=== PATIENT | female | born 1940 | race Caucasian/White ===

== ENCOUNTER → 2016-09-07 | Outpatient (CLI) | payer OTHER, BC ==
[~2016-09-07] MED LIST: ADULT LOW DOSE81 MG PO; ASPIRIN325 PO; CALCIUM 600 +1 EAC1 PO; EVISTA PO; LISINOPRIL10 MG PO; LISINOPRIL2.5 MG; OMEPRAZOLE 20 M20 MG PO; PLAVIX 75 MG TA75 M1 PO; PLAVIX 75 MG TA75 MG PO; PRILOSEC 20 MG20 MG PO; SIMVASTATIN20 MG PO; SIMVASTATIN80 MG PO; TOPROL XL25 MG PO; TOPROL XL50 MG PO; VITAMIN D22000 UNIT PO; ZETIA10 MG PO; ZOCOR 20 MG TAB20 M1 PO
== END ==
LOC: NUC 09-06 13:14
DX: I25.10 Atherosclerotic heart disease of native coronary artery without angina pectoris (principal)

== ENCOUNTER → 2017-05-18 | Outpatient (CLI) | payer OTHER, BC | LOC: RAD 00:32 | DX: Z12.31 Encounter for screening mammogram for malignant neoplasm of breast (principal) ==

== ENCOUNTER → 2017-09-06 | Outpatient (CLI) | payer OTHER, BC ==
--- NOTE | ~2017-09-06 | 2DMMODE ---
[facility] [address] [place] [address] 2 D/M-MODE ECHOCARDIOGRAM Name: MIKE OLSEN Room #: REG [facility]#: [id number] Admission: 09/06/17 Attend Phys: Nick Kinney MD Discharge: Date of : 36 Date of Service: 09/06/17 1050 Report #: [id number] THIS REPORT FOR: //name// APPROVED REPORT Study performed: 09/06/2017 10:11:25 EXAM: Comprehensive 2D, Doppler, and color-flow Echocardiogram Patient Location: Out-Patient Room #: Echo lab Status: routine BSA: 1.63 HR: 66 bpm BP: 128/74 mmHg Other Information Study Quality: Adequate Indications CAD Hypertension/HDD 2D Dimensions RVDd: 31.35 mm LVEF(%): 61.82 (>50%) IVSd: 8.06 (7-11mm) LVOT Diam: 18.46 (18-24mm) LVDd: 44.59 mm PWd: 8.46 (7-11mm) Ascending Ao: 25.99 (22-36mm) LVDs: 29.84 (25-40mm) Aortic Root: 28.67 mm IVC: 14.00 mm Stoll's LVEF: 61.82 % Volumes Left Atrial Volume (Systole) Single Plane 4CH: 29.48 mL Single Plane 2CH: 25.32 mL LA ESV Index: 19.00 mL/m2 Aortic Valve AoV Peak Cb.: 1.37 m/s AO Peak Gr.: 7.56 mmHg LVOT Max P.84 mmHg LVOT Max V: 0.98 m/s KAREN Vmax: 1.91 cm2 Mitral Valve E/A Ratio: 1.3 MV Decel. Time: 193.[address] [facility] [place] [address] 2 D/M-MODE ECHOCARDIOGRAM Name: MIKE OLSEN Room #: REG [facility]#: [id number] Admission: 09/06/17 Attend Phys: Nick Kinney MD Discharge: Date of : 36 Date of Service: 09/06/17 1050 Report #: [id number] MV E Max Cb.: 0.94 m/s MV A Cb.: 0.75 m/s MV PHT: 56.25 ms IVRT: 83.04 ms Pulmonary Valve PV Peak Cb.: 0.82 m/s PV Peak Gr.: 2.70 mmHg Pulmonary Vein P Vein S: 0.66 m/s P Vein A: 0.26 m/s P Vein D: 0.47 m/s P Vein A Dur.: 87.7 msec P Vein S/D Ratio: 1.40 Tricuspid Valve TR Peak Cb.: 2.50 m/s TR Peak Gr.: 25.10 mmHg PA Pressure: 30.00 mmHg Left Ventricle The left ventricle is normal size. There is normal left ventricular wall thickness. The left ventricular systolic function is normal. The left ventricular ejection fraction is within the normal range. LVEF is 55-60%. Grade II - pseudonormal filling dynamics. Right Ventricle The right ventricle is normal size. The right ventricular systolic function is normal. Atria The left atrium size is normal. The right atrium size is normal. Aortic Valve The aortic valve is normal in structure. Aortic valve is calcified. No aortic regurgitation is present. There is no aortic valvular stenosis. Mitral Valve The mitral valve is normal in structure. Mild mitral regurgitation. No evidence of mitral valve stenosis. Tricuspid Valve The tricuspid valve is normal in structure. There is trace tricuspid regurgitation. Estimated PAP 30 mmHg. There is no pulmonary hypertension. [address] [address] 2 D/M-MODE ECHOCARDIOGRAM Name: MIKE OLSEN Miguel Room #: REG CL [facility]#: [id number] Admission: 09/06/17 Attend Phys: Nick Kinney MD Discharge: Date of : 36 Date of Service: 09/06/17 1050 Report #: [id number] Pulmonic Valve The pulmonary valve is normal in structure. There is no pulmonic valvular regurgitation. Great Vessels The aortic root is normal in size. IVC is normal in size and collapses >50% with inspiration. Pericardium There is no pericardial effusion. <Conclusion> The left ventricle is normal size. There is normal left ventricular wall thickness. The left ventricular systolic function is normal. The right ventricle is normal size. The left atrium size is normal. Aortic valve is calcified. There is no aortic valvular stenosis. Mild mitral regurgitation. <ELECTRONICALLY SIGNED> By: Nick Kinney MD 09/06/17 1050 [id number] Nick Kinney MD /INF
== END ==
LOC: CV 09:55
DX: I25.10 Atherosclerotic heart disease of native coronary artery without angina pectoris (principal); I10 Essential (primary) hypertension; I34.0 Nonrheumatic mitral (valve) insufficiency

== ENCOUNTER → 2018-07-16 | Outpatient (CLI) | payer OTHER, BC | LOC: RAD 01:12 | DX: Z12.31 Encounter for screening mammogram for malignant neoplasm of breast (principal) ==

== ENCOUNTER 2018-08-15 10:24 | Emergency (ER) | payer OTHER, BC ==
[~2018-08-15] VITALS: Ht 154.9 cm; Wt 59.0 kg
[2018-08-15 11:15] LABS: ABSOLUTE NEUTROPHILS 10.4 thou/uL (1.4-8.2); BASOPHILS 0.6 % (0.0-2.0); EOSINOPHILS 0.6 % (0.0-3.0); HEMATOCRIT 42.9 % (37.0-47.0); HEMOGLOBIN 14.3 gm/dL (12.0-15.0); LYMPHOCYTES 23.3 % (24.0-44.0); MCH 27.3 pg (26.0-34.0); MCHC 33.3 g/dL (28.0-37.0); MCV 81.9 fL (80.0-100.0); MONOCYTES 5.4 % (1.0-8.0); PLATELET COUNT 189 thou/uL (150-400); POLYS 70.1 % (36.0-66.0); RBC 5.24 mil/uL (4.20-5.00); RDW 14.8 % (10.5-14.5); WBC 14.8 thou/uL (4.0-11.0)
[2018-08-15 11:23] LABS: CALCIUM 9.6 mg/dL (8.5-10.1); CREATININE 0.8 mg/dL (0.6-1.0)
[2018-08-15 11:29] LABS: ALBUMIN 3.6 g/dL (3.4-5.0); TOTAL BILIRUBIN 0.3 mg/dL (<0.1-1.0); TOTAL PROTEIN 7.2 g/dL (6.4-8.2)
[2018-08-15] MEDS ORDERED: VITAMIN D1000 UNI1 PO (11:47)
[2018-08-15] MEDS ORDERED: [UNRECOGNIZED DRUG - OTHER] TOP (11:49)
[2018-08-15] MEDS ORDERED: VITAMIN B-12500 MCG PO (11:50)
[2018-08-15] MEDS ORDERED: CRESTOR5 MG PO (11:50)
[2018-08-15 12:14] LABS: URINE BILIRUBIN NEGATIVE (Negative); URINE BLOOD 3+ (Negative); URINE CLARITY CLEAR; URINE COLOR YELLOW; URINE GLUCOSE-RANDOM* NEGATIVE (Negative); URINE KETONES NEGATIVE (Negative); URINE LEUKOCYTES-REFLEX NEGATIVE (Negative); URINE NITRITE-REFLEX NEGATIVE (Negative); URINE PROTEIN (DIPSTICK) NEGATIVE (Negative); URINE UROBILINOGEN 0.2 E.U./dl (0.2-1.0)
[2018-08-15 12:23] LABS: SQUAMOUS 0-3 Few /LPF (0-3); URINE RBC >20 Many /HPF (0-2)
[2018-08-15 12:24] LABS: BACTERIA-REFLEX 1-9 Few /HPF (None Seen); CASTS None Seen /LPF (None Seen); CRYSTALS None Seen /LPF (None Seen); URINE WBC-REFLEX 0-5 Rare /HPF (0-5)
[2018-08-15 13:44] LABS: HEMATOCRIT 31.7 % (37.0-47.0); MCH 27.6 pg (26.0-34.0); MCHC 33.4 g/dL (28.0-37.0); MCV 82.8 fL (80.0-100.0); RBC 3.83 mil/uL (4.20-5.00); RDW 14.4 % (10.5-14.5)
[2018-08-15 13:45] LABS: HEMOGLOBIN 10.6 gm/dL (12.0-15.0)
[2018-08-15] MEDS ORDERED: ONDANSETRON HCL4 M2 PO (14:06)
[2018-08-15] MEDS ORDERED: ULTRAM 50MG TAB50 MG PO (14:06)
[2018-08-15 14:22] VITALS: BP 142/73
== END 2018-08-15 14:22 | disposition home or self-care (01) ==
LOC: ER 10:24
PROVIDERS: Physician Assistant
DX: R10.31 Right lower quadrant pain (principal); M62.830 Muscle spasm of back; R11.10 Vomiting, unspecified; K21.9 Gastro-esophageal reflux disease without esophagitis; Z90.710 Acquired absence of both cervix and uterus; Z88.1 Allergy status to other antibiotic agents; Z88.5 Allergy status to narcotic agent; Z88.6 Allergy status to analgesic agent; Z88.8 Allergy status to other drugs, medicaments and biological substances

== ENCOUNTER → 2018-09-05 | Outpatient (CLI) | payer OTHER, BC ==
[~2018-09-05] MED LIST changes: +CRESTOR5 MG PO; +ONDANSETRON HCL4 M2 PO; +ULTRAM 50MG TAB50 MG PO; +VITAMIN B-12500 MCG PO; +VITAMIN D1000 UNI1 PO; +[UNRECOGNIZED DRUG - OTHER] TOP
== END ==
LOC: NUC 07:18
DX: I25.812 Atherosclerosis of bypass graft of coronary artery of transplanted heart without angina pectoris (principal); I10 Essential (primary) hypertension; E78.5 Hyperlipidemia, unspecified; Z87.891 Personal history of nicotine dependence

== ENCOUNTER → 2019-07-25 | Outpatient (CLI) | payer OTHER, BC | LOC: RAD 13:52 | DX: Z12.31 Encounter for screening mammogram for malignant neoplasm of breast (principal) ==

== ENCOUNTER → 2019-10-02 | Outpatient (CLI) | payer OTHER, BC | LOC: SJCVCIMAG 10:45 | DX: R94.31 Abnormal electrocardiogram [ECG] [EKG] (principal); I08.1 Rheumatic disorders of both mitral and tricuspid valves; I25.812 Atherosclerosis of bypass graft of coronary artery of transplanted heart without angina pectoris; I10 Essential (primary) hypertension; E78.00 Pure hypercholesterolemia, unspecified; R60.1 Generalized edema; E78.5 Hyperlipidemia, unspecified; Z98.61 Coronary angioplasty status ==

== ENCOUNTER → 2020-04-06 | Outpatient (CLI) | payer OTHER, BC | LOC: SJCVC 12:52 | PROVIDERS: ATTEND Internal Medicine Cardiovascular Disease | DX: I25.812 Atherosclerosis of bypass graft of coronary artery of transplanted heart without angina pectoris (principal); I10 Essential (primary) hypertension; I25.10 Atherosclerotic heart disease of native coronary artery without angina pectoris; R60.9 Edema, unspecified ==

== ENCOUNTER → 2020-10-14 | Outpatient (CLI) | payer OTHER, BC | LOC: SJCVCIMAG 10-06 07:28 | PROVIDERS: ATTEND Internal Medicine Cardiovascular Disease | DX: R00.0 Tachycardia, unspecified (principal); I49.1 Atrial premature depolarization; I49.3 Ventricular premature depolarization; I25.812 Atherosclerosis of bypass graft of coronary artery of transplanted heart without angina pectoris; I10 Essential (primary) hypertension; E78.00 Pure hypercholesterolemia, unspecified; R60.9 Edema, unspecified; E78.5 Hyperlipidemia, unspecified; Z90.710 Acquired absence of both cervix and uterus; Z98.890 Other specified postprocedural states; Z95.5 Presence of coronary angioplasty implant and graft; Z88.8 Allergy status to other drugs, medicaments and biological substances; Z79.82 Long term (current) use of aspirin; Z79.899 Other long term (current) drug therapy; Z87.891 Personal history of nicotine dependence; Z82.49 Family history of ischemic heart disease and other diseases of the circulatory system ==

== ENCOUNTER → 2021-04-18 | Outpatient (CLI) | payer OTHER, BC | LOC: SJCVC 10:09 | PROVIDERS: ATTEND Internal Medicine Cardiovascular Disease | DX: I10 Essential (primary) hypertension (principal); I25.10 Atherosclerotic heart disease of native coronary artery without angina pectoris; E78.00 Pure hypercholesterolemia, unspecified; R60.9 Edema, unspecified; Z88.8 Allergy status to other drugs, medicaments and biological substances; Z88.1 Allergy status to other antibiotic agents; Z79.82 Long term (current) use of aspirin; Z79.899 Other long term (current) drug therapy; Z87.891 Personal history of nicotine dependence; E78.5 Hyperlipidemia, unspecified ==